=== PATIENT | male | born 1960 | race Caucasian/White ===

== ENCOUNTER 2020-01-20 08:20 | Day surgery (SDC) | payer OTHER ==
[~2020-01-20] VITALS: Ht 175.3 cm; Wt 75.0 kg
[2020-01-20 09:28] VITALS: BP 111/73; PULSE 80; TEMP 98.4
[2020-01-20 10:30] VITALS: BP 116/74; PULSE 80; TEMP 97.8
--- NOTE | 2020-01-20 10:30 | NUR ---
TO BAY 4 PER CART FROM ENDOSCOPY. ALERT ORIENTED X3, TALKING WITH STAFF. AMBULATED TO RECLINER WITH ASSIST AND TOLERATED WELL. RECEIVED MUFFIN AND OJulio.
[2020-01-20 10:45] VITALS: BP 115/73; PULSE 66
--- NOTE | 2020-01-20 10:45 | NUR ---
ATE 100% AND TOLERATED WELL DR OSORIO TALKED WITH PATIENT AFTER PROCEDURE IN PROCEDURE RM.
--- NOTE | 2020-01-20 11:00 | NUR ---
RECEIVED DISCHARGE INSTRUCTIONS AND VERBALIZED UNDERSTANDING. DISCONTINUED IV AND INT PATIENT GETTING DRESSED. CALL LIGHT IN REACH
--- NOTE | 2020-01-20 11:20 | NUR ---
DISCHARGED PER WC BY NURSING STAFF TO PRIVATE CAR IN CARE OF FRIEND JULY.
== END 2020-01-20 11:28 | disposition home or self-care (01) ==
LOC: SDCO 08:20
DX: Z12.11 Encounter for screening for malignant neoplasm of colon (principal); K57.30 Diverticulosis of large intestine without perforation or abscess without bleeding; Z80.3 Family history of malignant neoplasm of breast; Z20.828 Contact with and (suspected) exposure to other viral communicable diseases
CPT/HCPCS: J2704; J3010; J7120